=== PATIENT | female | born 1935 | race Caucasian/White ===

== ENCOUNTER 2017-04-10 10:36 | Emergency (ER) | payer MEDICARE, OTHER ==
[2017-04-10 11:53] VITALS: BP 158/90
--- NOTE | 2017-04-10 13:15 | UC ---
Rustam Cuevas Stephanie, scribed for Holly Castro MD on 04/10/17 at 1230 . Respiratory Complaint HPI - HPI Summary HPI Summary: The pt is an 81 y/o F presenting to with cough that began approx 03/27/17. Symptoms progressively worse. No sob perse, except with cough. Symptoms include chest pain associated with cough. Symptoms worsened for last 5 days. Denies fever, rash, abd pain and ear ache, GI sx. Pt got her influenza vaccine this season. - History of Current Complaint Chief Complaint: UCRespiratory Stated Complaint: RESP ISSUE Time Seen by Provider: 04/10/17 12:12 Hx Obtained From: Patient ?: No Onset/Duration: Lasting Weeks - 2, Still Present Timing: Constant Severity Currently: Moderate Pain Intensity: 6 Pain Scale Used: 0-10 Numeric Character: Cough: Nonproductive Aggravating Factors: Nothing Alleviating Factors: Nothing Associated Signs And Symptoms: Negative: Fever - Allergies/Home Medications Allergies/Adverse Reactions: Allergies Allergy/AdvReac Type Severity Reaction Status Date / Time No Known Allergies Allergy Verified 04/10/17 11:53 Home Medications: Home Medications Phenylephrine W/ [id number] [Mucinex Congestion & Coug 2.5-5-100 mg/5Ml] 1 tab PO Q12HR PRN 04/10/17 [History Confirmed 04/10/17] PMH/Surg Hx/FS Hx/Imm Hx Previously Healthy: Yes - Denies sign past medical hx. - Surgical History Surgical History: Unable to Obtain/Confirm Surgery Procedure, Year, and Place: Left Knee Surgery - Family History Known Family History: Positive: Unknown - reviewed and non-contributory - Social History Occupation: Retired Lives: With Family Alcohol Use: None Substance Use Type: None Smoking Status (MU): Former Smoker Review of Systems Constitutional: Fatigue Skin: Negative Eyes: Negative ENT: Sore Throat, Nasal Discharge, Sinus Congestion Respiratory: Cough, Other - see HPI Cardiovascular: Other - see HPI Gastrointestinal: Negative Genitourinary: Negative Motor: Negative Neurovascular: Negative Musculoskeletal: Negative Neurological: Negative Psychological: Negative Is Patient Immunocompromised?: No All Other Systems Reviewed And Are Negative: Yes Physical Exam Triage Information Reviewed: Yes Appearance: Well-Nourished - Sitting up. conversing easily and appropriately. Looks tired but nontoxic. NAD. A little pale. Vital Signs: Initial Vital Signs Temp 98.0 F 04/10/17 11:46 Pulse 85 04/10/17 11:46 Resp 20 04/10/17 11:46 BP 158/90 04/10/17 11:46 Pulse Ox 100 04/10/17 11:46 Vital Signs Reviewed: Yes Eye Exam: Normal ENT: Positive: Pharyngeal erythema - mild post pharyng redness, uvula midline, no obtstruction, TM dull Neck exam: Normal Neck: Positive: Supple, Nontender Respiratory Exam: Other - BS equal bilaterally, + exp wheezes bilat bases and upper chest. No RTX. + rhonchorus cough. Respiratory: Positive: Wheezing Cardiovascular Exam: Normal Cardiovascular: Positive: RRR, No Murmur, Pulses Normal, Brisk Capillary Refill Abdominal Exam: Normal Abdomen Description: Positive: Nontender Musculoskeletal Exam: Normal Musculoskeletal: Positive: Edema @ - mild bilat edema (detailed exam not done) Neurological Exam: Normal Neurological: Positive: Alert Psychological Exam: Normal - conversing easily and appropriately Skin Exam: Normal - no visible or reported rash. nondiaphoretic. - Additional Comments Appearance: Well-Nourished Eye Exam: Normal ENT Exam: Normal Neck: Normal, No adenopathy appreciated Respiratory Exam: no dyspnea, no tachypnea, normal respiratory rate, bilateral expiratory wheezes Chest non-tender, Lungs clear, Normal breath sounds, No respiratory distress, No accessory muscle use Cardiovascular Exam: Normal Cardiovascular: Heart rate regular, good general skin color, good capillary refill RRR, No Murmur, Pulses Normal - sitting up. heart rate correlates w left radial pulse (if relevant), Brisk Capillary Refill Abdominal Exam: Normal Abdomen Description: Nontender, No Organomegaly, Soft Bowel Sounds: Present Musculoskeletal Exam: Normal Musculoskeletal: Strength Intact Neurological Exam: Normal: nonfocal, grossly intact Psychological Exam: Normal: conversing easily and appropriately Skin Exam: Normal: no visible or reported rash UC Diagnostic Evaluation - Laboratory O2 Sat by Pulse Oximetry: 100 Respiratory Course/Dx - Course Course Of Treatment: Ms. Mendoza presents today accompanying her . Her has significant illness, also checked in at the [facility]. It is recommended that he go to the ED; however, Ms Mendoza will be driving (they decline EMS). As such, Ms. Mendoza will check in to the ED for further evaluation and management of cough, wheezing, resp illness. No currently sob perse (just cough), nor does she c/o chest pain. Ms. Mendoza expresses understanding and agreement. Questions as posed answered to the best of my ability. Pt will drive to [facility] ED. ED physician spoke to Latoya Roberts from [facility] at 13:45. - Differential Dx/Diagnosis Provider Diagnoses: Respiratory illness. Bronchospasm. Discharge - Discharge Plan Condition: Stable Disposition: TRANS HIGHER LVL OF CARE FAC Referrals: Christiano Holly MD [Primary Care Provider] - 2 Weeks Additional Instructions: Go to the ED. Call [phone] if there are problems in transit. The documentation as recorded by the Rustam arnold Stephanie accurately reflects the service I personally performed and the decisions made by me, Holly Castro MD.
== END 2017-04-10 12:52 | disposition short-term general hospital (02) ==
LOC: UCEAST 10:36
DX: J98.01 Acute bronchospasm (principal); Z87.891 Personal history of nicotine dependence
CPT/HCPCS: 99212; G0463

== ENCOUNTER 2017-04-10 13:18 | Emergency (ER) | payer MEDICARE, OTHER ==
[2017-04-10 16:36] LABS: ABS Basophils 0.1 10^3/ul (0-0.2); ABS Eosinophils 0.2 10^3/ul (0-0.6); ABS Lymphocytes 1.5 10^3/ul (1.0-4.8); ABS Monocytes 0.4 10^3/ul (0-0.8); ABS Neutrophils 4.1 10^3/ul (1.5-7.7); ABS Nucleated RBC 0 10^3/ul; Eosinophil % 2.4 % (0-6); Hematocrit 35 % (35-47); Hemoglobin 12.2 g/dl (12.0-16.0); Lymphocyte % 23.6 % (25-47); Mean Corpuscular HGB Conc 35 g/dl (31-36); Mean Corpuscular Hemoglobin 31 pg (27-31); Mean Corpuscular Volume 89 fL (80-97); Mean Platelet Volume 11 um3 (7.4-10.4); Nucleated Red Blood Cells % 0.1; Platelet Count 216 10^3/ul (150-450); Red Blood Count 3.92 10^6/ul (4.0-5.4); Red Cell Distribution Width 14 % (10.5-15); White Blood Count 6.2 10^3/ul (3.5-10.8)
[2017-04-10 17:02] LABS: EGFR Non-African American 80.3 (>60)
--- NOTE | 2017-04-10 17:09 | RAD ---
INDICATION: Shortness of breath. COMPARISON: Comparison is made with a prior chest x-ray study from June 03, 2011. TECHNIQUE: Dual-energy PA and lateral views of the chest were obtained. FINDINGS: The heart is within normal limits in size. Mediastinal and hilar contours appear within normal limits. The lungs are underinflated and grossly clear. No pleural effusion is seen. There is a moderate dorsal lumbar scoliosis. IMPRESSION: NO EVIDENCE FOR ACUTE FINDING.
[2017-04-10 17:21] VITALS: BP 129/60
--- NOTE | 2017-04-10 18:18 | ED ---
August Cuevas Nilda, scribed for Christiano Degroot MD on 04/10/17 at 1616 . Respiratory - HPI Summary HPI Summary: This patient is an 81 year old F presenting to [facility] with a chief complaint of constant productive cough for the past 2 weeks. The patient rates the pain 0/10 in severity. Symptoms aggravated and alleviated by nothing. Patient reports CP and back pain secondary to cough, but denies fever, palpitations, sore throat, and N/V. - History of Current Complaint Chief Complaint: EDGeneral Stated Complaint: COUGH, COMMING FROM CC Time Seen by Provider: 04/10/17 15:53 Hx Obtained From: Patient Onset/Duration: Sudden Onset, Lasting Weeks, Still Present Timing: Constant Pain Intensity: 0 Character: Cough (Productive) Sputum Amount: Scant Aggravating Factor(s): Nothing Alleviating Factor(s): Nothing Associated Signs and Symptoms: Chest Pain with Cough - Allergy/Home Medications Allergies/Adverse Reactions: Allergies Allergy/AdvReac Type Severity Reaction Status Date / Time No Known Allergies Allergy Verified 04/10/17 11:53 PMH/Surg Hx/FS Hx/Imm Hx Cardiovascular History: Reports: Hx Hypertension Musculoskeletal History: Comment Only: Hx Osteoporosis - POSSIBLY- PT UNSURE- PREVIOUS DEXA SCAN ELSEWHERE Sensory History: Reports: Hx Contacts or Glasses Opthamlomology History: Reports: Hx Contacts or Glasses - Cancer History Hx Chemotherapy: No Hx Radiation Therapy: No - Surgical History Surgery Procedure, Year, and Place: Left Knee Surgery Infectious Disease History: No Infectious Disease History: Denies: Traveled Outside the [place] in Last 30 Days - Family History Known Family History: Positive: Unknown - reviewed and non-contributory - Social History Alcohol Use: None Substance Use Type: Reports: None Smoking Status (MU): Former Smoker Review of Systems Negative: Fever Negative: Sore Throat Positive: Chest Pain - secondary to cough. Negative: Palpitations Positive: Cough Negative: Vomiting, Nausea Positive: Other - back pain secondary to cough All Other Systems Reviewed And Are Negative: Yes Physical Exam - Summary Physical Exam Summary: VITAL SIGNS: Reviewed. GENERAL: Patient is a well-developed and nourished female who is lying comfortable in the stretcher. Patient is not in any acute respiratory distress. HEAD AND FACE: No signs of trauma. No ecchymosis, hematomas or skull depressions. No sinus tenderness. EYES: PERRLA, EOMI x 2, No injected conjunctiva, no nystagmus. EARS: Hearing grossly intact. Ear canals and tympanic membranes are within normal limits. MOUTH: Oropharynx within normal limits. NECK: Supple, trachea is midline, no adenopathy, no JVD, no carotid bruit, no c- spine tenderness, neck with full ROM. CHEST: Symmetric, no tenderness at palpation LUNGS: crackles in bilat bases CVS: Regular rate and rhythm, S1 and S2 present, no murmurs or gallops appreciated. ABDOMEN: Soft, non-tender. No signs of distention. No rebound no guarding, and no masses palpated. Bowel sounds are normal. EXTREMITIES: FROM in all major joints, no edema, no cyanosis or clubbing. NEURO: Alert and oriented x 3. No acute neurological deficits. Speech is normal and follows commands. SKIN: Dry and warm Triage Information Reviewed: Yes Vital Signs On Initial Exam: Initial Vitals Temp Pulse Resp BP Pulse Ox 99 F 99 20 164/83 97 04/10/17 13:31 04/10/17 13:31 04/10/17 13:31 04/10/17 13:31 04/10/17 13:31 Vital Signs Reviewed: Yes Diagnostics - Vital Signs Vital Signs Temp Pulse Resp BP Pulse Ox 04/10/17 13:31 99 F 99 20 164/83 97 - Laboratory Lab Results: Lab Results 04/10/17 04/10/17 04/10/17 Range/Units 16:21 16:21 16:21 WBC 6.2 (3.5-10.8) 10^3/ul RBC 3.92 L (4.0-5.4) 10^6/ul Hgb 12.2 (12.0-16.0) g/dl Hct 35 (35-47) % MCV 89 (80-97) fL MCH 31 (27-31) pg MCHC 35 (31-36) g/dl RDW 14 (10.5-15) % Plt Count 216 (150-450) 10^3/ul MPV 11 H (7.4-10.4) um3 Neut % (Auto) 65.7 (38-83) % Lymph % (Auto) 23.6 L (25-47) % [place] % (Auto) 7.2 (1-9) % Eos % (Auto) 2.4 (0-6) % Baso % (Auto) 1.1 (0-2) % Absolute Neuts (auto) 4.1 (1.5-7.7) 10^3/ul Absolute Lymphs (auto) 1.5 (1.0-4.8) 10^3/ul Absolute Monos (auto) 0.4 (0-0.8) 10^3/ul Absolute Eos (auto) 0.2 (0-0.6) 10^3/ul Absolute Basos (auto) 0.1 (0-0.2) 10^3/ul Absolute Nucleated RBC 0 10^3/ul Nucleated RBC % 0.1 Sodium 139 (133-145) mmol/L Potassium 3.5 (3.5-5.0) mmol/L Chloride 102 (101-111) mmol/L Carbon Dioxide 30 (22-32) mmol/L Anion Gap 7 (2-11) mmol/L BUN 20 (6-24) mg/dL Creatinine 0.70 (0.51-0.95) mg/dL Est GFR ( Amer) 103.3 (>60) Est GFR (Non-Af Amer) 80.3 (>60) BUN/Creatinine Ratio 28.6 H (8-20) Glucose 165 H (70-100) mg/dL Lactic Acid (0.5-2.0) mmol/L Calcium 9.0 (8.6-10.3) mg/dL Total Bilirubin 0.60 (0.2-1.0) mg/dL AST 19 (13-39) U/L ALT 18 (7-52) U/L Alkaline Phosphatase 96 (34-104) U/L Troponin I 0.00 (<0.04) ng/mL C-Reactive Protein 3.01 (< 5.00) mg/L B-Natriuretic Peptide 142 H ( - 100) pg/mL Total Protein 6.2 L (6.4-8.9) g/dL Albumin 3.6 (3.2-5.2) g/dL Globulin 2.6 (2-4) g/dL Albumin/Globulin Ratio 1.4 (1-3) Influenza A (Rapid) (Negative) Influenza B (Rapid) (Negative) 04/10/17 04/10/17 Range/Units 16:21 16:41 WBC (3.5-10.8) 10^3/ul RBC (4.0-5.4) 10^6/ul Hgb (12.0-16.0) g/dl Hct (35-47) % MCV (80-97) fL MCH (27-31) pg MCHC (31-36) g/dl RDW (10.5-15) % Plt Count (150-450) 10^3/ul MPV (7.4-10.4) um3 Neut % (Auto) (38-83) % Lymph % (Auto) (25-47) % [place] % (Auto) (1-9) % Eos % (Auto) (0-6) % Baso % (Auto) (0-2) % Absolute Neuts (auto) (1.5-7.7) 10^3/ul Absolute Lymphs (auto) (1.0-4.8) 10^3/ul Absolute Monos (auto) (0-0.8) 10^3/ul Absolute Eos (auto) (0-0.6) 10^3/ul Absolute Basos (auto) (0-0.2) 10^3/ul Absolute Nucleated RBC 10^3/ul Nucleated RBC % Sodium (133-145) mmol/L Potassium (3.5-5.0) mmol/L Chloride (101-111) mmol/L Carbon Dioxide (22-32) mmol/L Anion Gap (2-11) mmol/L BUN (6-24) mg/dL Creatinine (0.51-0.95) mg/dL Est GFR ( Amer) (>60) Est GFR (Non-Af Amer) (>60) BUN/Creatinine Ratio (8-20) Glucose (70-100) mg/dL Lactic Acid 1.1 (0.5-2.0) mmol/L Calcium (8.6-10.3) mg/dL Total Bilirubin (0.2-1.0) mg/dL AST (13-39) U/L ALT (7-52) U/L Alkaline Phosphatase (34-104) U/L Troponin I (<0.04) ng/mL C-Reactive Protein (< 5.00) mg/L B-Natriuretic Peptide ( - 100) pg/mL Total Protein (6.4-8.9) g/dL Albumin (3.2-5.2) g/dL Globulin (2-4) g/dL Albumin/Globulin Ratio (1-3) Influenza A (Rapid) Negative (Negative) Influenza B (Rapid) Negative (Negative) Result Diagrams: 04/10/17 16:21 04/10/17 16:21 Lab Statement: Any lab studies that have been ordered have been reviewed, and results considered in the medical decision making process. - Radiology CXR Radiology Interpretation Completed By: Radiologist - CXR, per radiologist, reveals no evidence for acute finding. Dr. Degroot has reviewed this radiology report. - EKG 1611 Cardiac Rate: NL EKG Rhythm: Sinus Rhythm - 87 bpm EKG Interpretation: no ST elevations, Q wave in 3 EKG Comparison: No Significant Change - similar to an EKG on 12/03/10 Disposition - Course Assessment/Plan: This patient is an 81 year old F presenting to [facility] with a chief complaint of constant productive cough for the past 2 weeks. The patient rates the pain 0/10 in severity. Symptoms aggravated and alleviated by nothing. Patient reports CP and back pain secondary to cough, but denies fever, palpitations, sore throat, and N/V. Test results are without any significant abnormality. Influenza A negative. Influenza B negative. An EKG reveals NSR, 87 bpm, no ST elevations, Q wave in 3, similar to an EKG on 12/03/10. CXR, per radiologist, reveals no evidence for acute finding. Dr. Degroot has reviewed this radiology report. Since pt has no complaints and labs are nml, pt will be D/C with Dx of URI and follow up from PCP. The pt is hemodynamically stable, alert and oriented x3. - Differential Dx - Cardiopulmonary Differential Diagnoses - Cardiopulmonary: Bronchitis, Influenza, Laryngitis, Lower Resp Infection, Sinusitis - Diagnoses Provider Diagnoses: URI (upper respiratory infection) Discharge - Discharge Plan Condition: Stable Disposition: HOME Patient Education Materials: Upper Respiratory Infection (ED) Referrals: Christiano Holly MD [Primary Care Provider] - 3 Days Additional Instructions: RETURN TO THE EMERGENCY DEPARTMENT FOR CHANGING OR WORSENING SYMPTOMS. The documentation as recorded by the August arnold Nilda accurately reflects the service I personally performed and the decisions made by Zane porras Walter, MD.
== END 2017-04-10 17:20 | disposition home or self-care (01) ==
LOC: ED 13:18
DX: J06.9 Acute upper respiratory infection, unspecified (principal); R07.9 Chest pain, unspecified; Z87.891 Personal history of nicotine dependence
CPT/HCPCS: 36415; 71046; 80053; 83605; 83880; 84484; 85025; 86140; 87040; 87502; 93005; 99282

== ENCOUNTER 2017-12-16 10:43 | Day surgery (SDC) | payer MEDICARE, OTHER ==
[~2017-12-16 10:43] MED LIST: Acetaminophen TAB* 325 MG PO PRN; Buffered Lidocaine 0.9% SYRIN* 5 ML/SYR SYRINGE INTRADERM ONE
[2017-12-16] MEDS ORDERED: fentaNYL* 50 MCG/ML 2 ML VIAL (100 MCG VIAL) ONE (12:55)
[2017-12-16] MEDS ORDERED: Propofol* 10 MG/ML 20 ML BTL IV PUSH ONE (12:55)
[2017-12-16] MEDS ORDERED: Lidocaine 2% PF * 5 ML VIAL ONE (12:55)
[2017-12-16 13:42] VITALS: BP 155/66
--- NOTE | 2017-12-16 14:36 | OP ---
DATE OF OPERATION: 12/16/2017 - [facility] DATE OF : 1935. SURGEON: Cristian Whipple M.D. PREOPERATIVE DIAGNOSIS: Cataract left eye. POSTOPERATIVE DIAGNOSIS: Cataract left eye. OPERATIVE PROCEDURE: Extracapsular cataract extraction with intraocular lens implant left eye. DESCRIPTION OF PROCEDURE: The patient was brought to the operating room after being given 1/2% Alcaine with epinephrine drops in the preoperative area. The eye was prepped and draped in the usual sterile fashion. Sterile drape and eyelid speculum were placed. Again, topical 1/2% Alcaine with epinephrine was given. A paracentesis incision was made at the 3 o'clock position with the No.75 blade. Clear cornea incision 2.2 x 2.2-mm was created at the 6 o'clock position starting at the anterior limbus using the 2.2-mm keratome. The anterior chamber was irrigated with 0.4 mL of 1% non-preservative intracameral lidocaine and filled with DisCoVisc. A capsulorrhexis was completed using the cystotome and the Utrata forceps. Hydrodissection was performed with balanced salt solution. The lens nucleus was removed with the Phacoemulsification handpiece without incident. Cortex was removed with the irrigation-aspiration handpiece. The capsular bag was re-inflated using DisCoVisc and an [id number] implant was inserted with the shooter. The irrigation-aspiration handpiece was used to remove all residual DisCoVisc. The eye was refilled with balanced salt solution and the wound checked and found to be watertight. Topical Maxitrol drops were given. [id number]/[facility] #: [id number] [facility]
[2017-12-16] MEDS ORDERED: Cyclopentolate 1% OPTH.SOL* 2 ML BTL ONE (14:55)
[2017-12-16] MEDS ORDERED: Lidocaine 1%* 5 ML VIAL ONE (14:55)
[2017-12-16] MEDS ORDERED: Ketorolac 0.5% OPHTH (NF) 0.5 % 5 ML BTL ONE (14:55)
[2017-12-16] MEDS ORDERED: acetaZOLAMIDE TAB* 250 MG ONE (14:55)
[2017-12-16] MEDS ORDERED: Phenylephrine 2.5% OPTH.SOL* 2 ML BTL ONE (14:55)
[2017-12-16] MEDS ORDERED: Neomycin/Polymy/Dex OPTH.SUSP* MAXITROL 0.1% 5 ML ONE (14:55)
[2017-12-16] MEDS ORDERED: Povidone Iodine 5% OPTH* 30 ML BTL ONE (14:55)
[2017-12-16] MEDS ORDERED: Lidocaine 2% EPI 1:200000 MPF*10-20 ML VIAL ONE (14:55)
[2017-12-16] MEDS ORDERED: Proparacaine 0.5% OPHTH.SOL* 15 ML BTL ONE (14:56)
== END 2017-12-16 13:36 | disposition home or self-care (01) ==
LOC: OREAST 10:43
PROVIDERS: ATTEND Specialist
DX: H25.812 Combined forms of age-related cataract, left eye (principal); H40.1131 Primary open-angle glaucoma, bilateral, mild stage; H43.813 Vitreous degeneration, bilateral; H53.022 Refractive amblyopia, left eye; Z87.891 Personal history of nicotine dependence; I10 Essential (primary) hypertension; K21.9 Gastro-esophageal reflux disease without esophagitis; H52.229 Regular astigmatism, unspecified eye
CPT/HCPCS: A9270-GY; J2704; J3010; V2632